=== PATIENT | female | born 1950 ===

== ENCOUNTER 2023-04-24 02:46 | Inpatient (IN) ==
[2023-04-24] MEDS ORDERED: KETOROLAC 15 MG/ML VIAL IV ONE (03:23)
[2023-04-24] MEDS ORDERED: fentaNYL 100 MCG/2 ML VIAL IV ONE (06:00)
[2023-04-24 07:05] LABS: Basophils # (Auto) 0.02 K/mcL (0.00-0.30); Basophils % (Auto) 0.3 % (0.0-2.0); Eosinophils # (Auto) 0.01 K/mcL (0.00-0.70); Eosinophils % (Auto) 0.1 % (0.0-7.0); Hematocrit 41.1 % (34.1-44.9); Hemoglobin 13.4 g/dL (11.2-15.7); Lymphocytes # (Auto) 1.04 K/mcL (1.50-4.80); Lymphocytes % (Auto) 13.1 % (15.5-49.0); Mean Cell Volume 104.1 fL (80.0-100.0); Mean Corpuscular HGB Conc 32.6 g/dL (31.0-36.0); Mean Platelet Volume 10.1 fL (8.8-12.5); Monocytes # (Auto) 0.47 K/mcL (0.10-0.90); Monocytes % (Auto) 5.9 % (1.0-12.0); Neutrophils % (Auto) 80.3 % (38.0-78.0); Platelet Count 226 K/mcL (140-440); RBC 3.95 M/mcL (3.59-5.38); Red Cell Distribution Width 13.4 % (11.5-14.5); WBC 7.9 K/mcL (4.5-11.0)
[2023-04-24 07:23] LABS: ALT/SGPT 9 U/L (<40); AST/SGOT 13 U/L (<32); Albumin 3.5 gm/dL (3.2-5.2); Albumin/Globulin Ratio 0.9 (1.0-2.3); Alkaline Phosphatase 69 U/L (39-117); Bilirubin,Total 0.5 mg/dL (0.1-1.0); Blood Urea Nitrogen 18 mg/dL (8-23); Calcium 8.2 mg/dL (8.6-10.4); Carbon Dioxide 21 mmol/L (22-30); Chloride 104 mmol/L (96-108); Globulin 3.7 gm/dL (2.2-3.7); Glomerular Filtration Rate 56; Glucose 119 mg/dL (70-105)
[2023-04-24] MEDS ORDERED: ONDANSETRON 4 MG/2 ML VIAL IV ONE (07:29)
[2023-04-24] MEDS ORDERED: morphine 2 MG/ML VIAL IV PRN (07:29)
[2023-04-24] MEDS ORDERED: NALOXONE HCL 0.4 MG/ML VIAL IV PRN ×2 (07:29→11:28)
[2023-04-24] MEDS ORDERED: 0.9 % SODIUM CHLORIDE 1,000 ML IV SCH (07:30)
[2023-04-24] MEDS ORDERED: POLYETHYLENE GLYCOL 3350 17 GM PACKET PO PRN ×2 (09:28→11:40)
[2023-04-24] MEDS ORDERED: ACETAMINOPHEN 325 MG TABLET PO PRN (09:28)
[2023-04-24] MEDS ORDERED: POTASSIUM CHLORIDE 40 MEQ in DEXTROSE 5% IN WATER 500 ML IV PRN (09:28)
[2023-04-24] MEDS ORDERED: SENNOSIDES 1 TABLET PO PRN (09:28)
[2023-04-24] MEDS ORDERED: DIAZEPAM 5 MG TABLET PO PRN (09:28)
[2023-04-24] MEDS ORDERED: IPRATROPIUM/ALBUTEROL 3 ML AMPUL.NEB NEB PRN ×2 (09:28→11:28)
[2023-04-24] MEDS ORDERED: HYDROcodone/APAP 5/325MG TABLET PO PRN (09:28)
[2023-04-24] MEDS ORDERED: POTASSIUM CHLORIDE 20 MEQ TABLET PO PRN ×2 (09:28)
[2023-04-24] MEDS ORDERED: MAGNESIUM SULFATE 2 GM/50 ML BAG IV PRN (09:28)
[2023-04-24] MEDS ORDERED: chlordiazePOXIDE 25 MG CAPSULE PO PRN (09:28)
[2023-04-24] MEDS ORDERED: ONDANSETRON 4 MG/2 ML VIAL IV PRN ×2 (09:28→11:28)
[2023-04-24] MEDS ORDERED: KETAMINE 50 MG/ML Syringe IV ONE (09:35)
[2023-04-24] MEDS ORDERED: LIDOCAINE 2% PF 5 ML VIAL ONE (09:36)
[2023-04-24] MEDS ORDERED: MAGNESIUM SULFATE 2 GM/50 ML BAG IV ONE (09:36)
[2023-04-24] MEDS ORDERED: DEXAMETHASONE 10 MG/ML VIAL ONE (09:36)
[2023-04-24] MEDS ORDERED: PROPOFOL 200 MG/20 ML VIAL IV ONE (09:36)
[2023-04-24] MEDS ORDERED: ONDANSETRON 4 MG/2 ML VIAL ONE (09:36)
[2023-04-24] MEDS ORDERED: ceFAZolin 1 GM VIAL ONE (10:54)
[2023-04-24] MEDS ORDERED: ceFAZolin 2 GM in DEXTROSE 5% IN WATER 50 ML IV SCH ×2 (11:00→11:45)
[2023-04-24] MEDS ORDERED: MEPERIDINE 25 MG/ML VIAL IV PRN (11:28)
[2023-04-24] MEDS ORDERED: fentaNYL 100 MCG/2 ML VIAL IV PRN (11:28)
[2023-04-24] MEDS ORDERED: ACETAMINOPHEN 650 MG/65 ML BAG IV ONE (11:28)
[2023-04-24] MEDS ORDERED: PROMETHAZINE 25 MG/ML VIAL IV PRN (11:28)
[2023-04-24] MEDS ORDERED: LACTATED RINGERS 250 ML IV PRN (11:28)
[2023-04-24] MEDS ORDERED: diphenhydrAMINE 50 MG/ML VIAL IV PRN (11:28)
[2023-04-24] MEDS ORDERED: LACTATED RINGERS 1,000 ML IV SCH (11:30)
[2023-04-24] MEDS ORDERED: FLEETS ADULT 1 DOSE ENEMA PR PRN (11:40)
[2023-04-24] MEDS ORDERED: ONDANSETRON 4 MG ODT TABLET SL PRN (11:40)
[2023-04-24] MEDS ORDERED: BISACODYL 10 MG SUPP.RECT PR PRN (11:40)
[2023-04-24] MEDS ORDERED: MAGNESIUM HYDROXIDE 30 ML ORAL.SUSP PO PRN (11:40)
[2023-04-24] MEDS ORDERED: 0.9 % SODIUM CHLORIDE 10 ML SYRINGE IV PRN (11:40)
[2023-04-24] MEDS ORDERED: BENZOCAINE/MENTHOL 1 LOZENGE PO PRN (11:40)
[2023-04-24] MEDS: 0.9 % SODIUM CHLORIDE 1,000 ML IV SCH ×2 (12:53→20:59)
[2023-04-24 12:57] LABS: Appearance,Urine CLEAR (Clear); Bilirubin,Urine Negative (Negative); Color,Urine STRAW; Culture Indicated,Urine No; Glucose,Urine (UA) Negative (Negative); Ketones,Urine Negative (Negative); Leukocyte Esterase,Urine Negative /uL (Negative); Mucus,Urine FEW /hpf; Nitrate,Urine Negative (Negative); Protein,Urine Negative (Negative); Urine Blood 0.03 mg/dL (Negative); Urine Hyaline Cast 1 /lph (0-2); Urine RBC 1 /hpf (0-3); Urine Squamous Epithelial Cell < 1 /hpf (0-4); Urine WBC < 1 /hpf (0-4); Urobilinogen,Urine Negative
[2023-04-24] MEDS: THIAMINE 100 MG in 0.9 % SODIUM CHLORIDE 50 ML IV SCH (13:14)
[2023-04-24] MEDS: 0.9 % SODIUM CHLORIDE 10 ML SYRINGE IV SCH ×2 (13:59→20:56)
[2023-04-24] MEDS: FOLIC ACID 1 MG TABLET PO SCH (14:26)
[2023-04-24] MEDS: MULTIVIT,THER IRON,CA,FA & MIN 1 TABLET PO SCH (14:26)
[2023-04-24] MEDS: ETHYL ALCOHOL 30 ML ORAL.SOL PO SCH (15:04)
[2023-04-24] MEDS: HYDROcodone/APAP 5/325MG TABLET PO PRN (17:31)
[2023-04-24] MEDS: morphine 4 MG/ML VIAL IV PRN (19:27)
[2023-04-24] MEDS: ceFAZolin 1 GM VIAL IV SCH (19:28)
[2023-04-24] MEDS: METHOCARBAMOL 750 MG TABLET PO PRN (21:00)
[2023-04-24] MEDS ORDERED: DOCUSATE SODIUM 100 MG CAPSULE PO SCH (21:00)
[2023-04-24] MEDS: ASPIRIN 81 MG TAB.CHEW PO SCH (21:00)
[2023-04-24] MEDS: DOCUSATE SODIUM 100 MG CAPSULE PO SCH (21:00)
[2023-04-24] MEDS: SENNOSIDES 1 TABLET PO SCH (21:00)
[2023-04-25] MEDS: ceFAZolin 1 GM VIAL IV SCH (04:11)
[2023-04-25] MEDS: 0.9 % SODIUM CHLORIDE 10 ML SYRINGE IV SCH ×3 (04:26→21:24)
[2023-04-25 07:00] LABS: ALT/SGPT 6 U/L (<40); AST/SGOT 13 U/L (<32); Albumin 3.2 gm/dL (3.2-5.2); Albumin/Globulin Ratio 0.9 (1.0-2.3); Alkaline Phosphatase 60 U/L (39-117); Bilirubin,Direct < 0.2 mg/dL (0-0.3); Bilirubin,Total 0.2 mg/dL (0.1-1.0); Blood Urea Nitrogen 16 mg/dL (8-23); Calcium 8.2 mg/dL (8.6-10.4); Carbon Dioxide 20 mmol/L (22-30); Chloride 104 mmol/L (96-108); Globulin 3.4 gm/dL (2.2-3.7); Glomerular Filtration Rate 45; Glucose 95 mg/dL (70-105); Lactate Dehydrogenase 162 U/L (135-225); Phosphorous 3.7 mg/dL (2.5-4.5); Triglycerides 69 mg/dL (<150); Uric Acid 3.9 mg/dL (2.5-8.0)
[2023-04-25] MEDS: 0.9 % SODIUM CHLORIDE 1,000 ML IV SCH ×2 (07:22→17:00)
[2023-04-25] MEDS: HYDROcodone/APAP 5/325MG TABLET PO PRN ×2 (07:29→11:34)
[2023-04-25] MEDS ORDERED: THIAMINE 100 MG/ML VIAL ONE (08:14)
[2023-04-25] MEDS: FOLIC ACID 1 MG TABLET PO SCH (08:16)
[2023-04-25] MEDS: DOCUSATE SODIUM 100 MG CAPSULE PO SCH ×2 (08:16→21:26)
[2023-04-25] MEDS: MULTIVIT,THER IRON,CA,FA & MIN 1 TABLET PO SCH (08:16)
[2023-04-25] MEDS: ASPIRIN 81 MG TAB.CHEW PO SCH ×2 (08:16→21:26)
[2023-04-25] MEDS: THIAMINE 100 MG in 0.9 % SODIUM CHLORIDE 50 ML IV SCH (08:32)
[2023-04-25] MEDS: ETHYL ALCOHOL 30 ML ORAL.SOL PO SCH ×2 (08:44→16:35)
[2023-04-25] MEDS ORDERED: ETHYL ALCOHOL 30 ML ORAL.SOL PO SCH (09:00)
[2023-04-25] MEDS: NICOTINE 21 MG PATCH TOPICAL SCH (11:43)
[2023-04-25] MEDS: morphine 4 MG/ML VIAL IV PRN (12:31)
[2023-04-25] MEDS: diphenhydrAMINE 50 MG/ML VIAL IV SCH ×2 (13:44→16:02)
[2023-04-25] MEDS: SENNOSIDES 1 TABLET PO SCH (21:26)
[2023-04-26] MEDS: HYDROcodone/APAP 5/325MG TABLET PO PRN ×4 (02:13→20:12)
[2023-04-26] MEDS: 0.9 % SODIUM CHLORIDE 1,000 ML IV SCH ×2 (04:15→14:52)
[2023-04-26] MEDS: 0.9 % SODIUM CHLORIDE 10 ML SYRINGE IV SCH ×3 (04:16→20:13)
[2023-04-26] MEDS: METHOCARBAMOL 750 MG TABLET PO PRN ×2 (07:24→14:52)
[2023-04-26] MEDS: ETHYL ALCOHOL 30 ML ORAL.SOL PO SCH ×2 (07:55→17:51)
[2023-04-26] MEDS: ASPIRIN 81 MG TAB.CHEW PO SCH ×2 (08:45→20:13)
[2023-04-26] MEDS: MULTIVIT,THER IRON,CA,FA & MIN 1 TABLET PO SCH (08:45)
[2023-04-26] MEDS: THIAMINE 100 MG TABLET PO SCH (08:45)
[2023-04-26] MEDS: FOLIC ACID 1 MG TABLET PO SCH (08:45)
[2023-04-26] MEDS: DOCUSATE SODIUM 100 MG CAPSULE PO SCH ×2 (08:45→20:12)
[2023-04-26] MEDS ORDERED: NICOTINE 21 MG PATCH TOPICAL SCH (10:00)
[2023-04-26] MEDS: NICOTINE 21 MG PATCH TOPICAL SCH (10:08)
[2023-04-26] MEDS: SENNOSIDES 1 TABLET PO SCH (20:11)
[2023-04-27] MEDS: HYDROcodone/APAP 5/325MG TABLET PO PRN ×3 (03:58→11:23)
[2023-04-27] MEDS: 0.9 % SODIUM CHLORIDE 1,000 ML IV SCH ×2 (04:07→11:24)
[2023-04-27] MEDS: 0.9 % SODIUM CHLORIDE 10 ML SYRINGE IV SCH (05:33)
[2023-04-27] MEDS: ETHYL ALCOHOL 30 ML ORAL.SOL PO SCH (08:35)
[2023-04-27] MEDS: DOCUSATE SODIUM 100 MG CAPSULE PO SCH (08:35)
[2023-04-27] MEDS: MULTIVIT,THER IRON,CA,FA & MIN 1 TABLET PO SCH (08:35)
[2023-04-27] MEDS: ASPIRIN 81 MG TAB.CHEW PO SCH (08:35)
[2023-04-27] MEDS: THIAMINE 100 MG TABLET PO SCH (08:35)
[2023-04-27] MEDS: FOLIC ACID 1 MG TABLET PO SCH (08:36)
[2023-04-27] MEDS: NICOTINE 21 MG PATCH TOPICAL SCH (10:04)
== END 2023-04-27 11:45 | DRG 481 ==
LOC: ED 02:46 → MEDSUR 08:24
PROVIDERS: ADMIT Internal Medicine; ATTEND Internal Medicine